=== PATIENT | female | born 1935 | race Two or more races ===

== ENCOUNTER 2019-11-10 11:15 | Inpatient (IN) | payer BC ==
[2019-11-10] MEDS ORDERED: Acetaminophen 500mg (ES) tab ORAL ONE (11:45)
[2019-11-10] MEDS ORDERED: Enoxaparin 60mg Inj SUBQ ONE (13:15)
[2019-11-10] MEDS ORDERED: Aspirin Baby 81mg ORAL ONE (13:15)
[2019-11-10] MEDS: Docusate 100mg cap ORAL SCH (18:00)
[2019-11-10] MEDS ORDERED: LISINOPRIL5 MG ORAL (19:39)
[2019-11-10] MEDS ORDERED: NORVASC5 MG ORAL (19:39)
[2019-11-10] MEDS: Atorvastatin 20mg tab ORAL SCH (20:34)
[2019-11-10] MEDS: Heparin 5000 units/ml inj SUBQ SCH (20:36)
[2019-11-11] MEDS: Aspirin EC 81mg tab ORAL SCH (08:42)
[2019-11-11] MEDS: Docusate 100mg cap ORAL SCH ×2 (08:43→13:00)
[2019-11-11] MEDS: Heparin 5000 units/ml inj SUBQ SCH ×2 (08:46→20:25)
[2019-11-11] MEDS ORDERED: Potassium Phosphate 20 MM in NS 275 ML IV ONE (15:00)
[2019-11-11] MEDS: Atorvastatin 20mg tab ORAL SCH (20:24)
[2019-11-12] MEDS: Aspirin EC 81mg tab ORAL SCH (09:37)
[2019-11-12] MEDS: Heparin 5000 units/ml inj SUBQ SCH ×2 (09:40→20:30)
[2019-11-12] MEDS ORDERED: Potassium Phosphate 20 MM in NS 275 ML IV ONE (10:00)
[2019-11-12] MEDS ORDERED: Tubing IV Secondary IV ONE (17:01)
[2019-11-12] MEDS: Atorvastatin 20mg tab ORAL SCH (20:27)
[2019-11-13] MEDS: Aspirin EC 81mg tab ORAL SCH (09:40)
[2019-11-13] MEDS: Heparin 5000 units/ml inj SUBQ SCH ×2 (09:43→21:07)
[2019-11-13] MEDS ORDERED: HydrALAZINE 25mg tab ORAL PRN (10:30)
[2019-11-13] MEDS: Atorvastatin 20mg tab ORAL SCH (21:03)
[2019-11-14] MEDS: Vancomycin 500mg/D5W 110ml IVPB SCH ×4 (01:09→12:37)
[2019-11-14] MEDS: metroNIDAZOLE 500mg tab ORAL SCH ×3 (05:50→22:05)
[2019-11-14] MEDS: Aspirin EC 81mg tab ORAL SCH (08:59)
[2019-11-14] MEDS: Heparin 5000 units/ml inj SUBQ SCH ×2 (09:04→22:13)
[2019-11-14] MEDS: Atorvastatin 20mg tab ORAL SCH (22:05)
[2019-11-15] MEDS: metroNIDAZOLE 500mg tab ORAL SCH ×2 (05:28→13:42)
[2019-11-15] MEDS ORDERED: Albuterol 90mcg Inhaler 8gm INH PRN (08:30)
[2019-11-15] MEDS: Aspirin EC 81mg tab ORAL SCH (09:43)
[2019-11-15] MEDS: Heparin 5000 units/ml inj SUBQ SCH ×2 (09:46→20:45)
[2019-11-15] MEDS ORDERED: Vancomycin 1gm in D5W 275ml IVPB SCH (12:00)
[2019-11-15] MEDS ORDERED: guaiFENesin /DM 10ml syrup ORAL PRN (17:15)
[2019-11-15] MEDS: Atorvastatin 20mg tab ORAL SCH (20:39)
[2019-11-16] MEDS: Piperacillin/Tazobactam 3.375 GM in D5W 110 ML IVPB SCH ×2 (09:27→17:24)
[2019-11-16] MEDS: Aspirin EC 81mg tab ORAL SCH (09:31)
[2019-11-16] MEDS: Heparin 5000 units/ml inj SUBQ SCH ×2 (09:32→20:40)
[2019-11-16] MEDS: guaiFENesin /DM 10ml syrup ORAL PRN (10:06)
[2019-11-16] MEDS: Atorvastatin 20mg tab ORAL SCH (20:37)
[2019-11-17] MEDS: Piperacillin/Tazobactam 3.375 GM in D5W 110 ML IVPB SCH ×3 (00:35→17:19)
[2019-11-17] MEDS: Heparin 5000 units/ml inj SUBQ SCH ×2 (09:20→20:40)
[2019-11-17] MEDS: Aspirin EC 81mg tab ORAL SCH (09:21)
[2019-11-17] MEDS: guaiFENesin /DM 10ml syrup ORAL PRN (10:15)
[2019-11-17] MEDS: HydrALAZINE 25mg tab ORAL SCH ×2 (14:35→22:52)
[2019-11-17] MEDS: Atorvastatin 20mg tab ORAL SCH (20:35)
[2019-11-18] MEDS: Piperacillin/Tazobactam 3.375 GM in D5W 110 ML IVPB SCH ×3 (00:29→17:47)
[2019-11-18] MEDS: HydrALAZINE 25mg tab ORAL SCH ×3 (05:59→22:03)
[2019-11-18] MEDS: Aspirin EC 81mg tab ORAL SCH (09:01)
[2019-11-18] MEDS: guaiFENesin /DM 10ml syrup ORAL PRN (09:01)
[2019-11-18] MEDS: Heparin 5000 units/ml inj SUBQ SCH ×2 (09:03→22:53)
[2019-11-18] MEDS: Atorvastatin 20mg tab ORAL SCH (21:56)
[2019-11-19] MEDS: Piperacillin/Tazobactam 3.375 GM in D5W 110 ML IVPB SCH ×3 (01:42→17:10)
[2019-11-19] MEDS: HydrALAZINE 25mg tab ORAL SCH (06:47)
[2019-11-19] MEDS: Aspirin EC 81mg tab ORAL SCH (08:45)
[2019-11-19] MEDS: Fluconazole 100mg tab ORAL SCH (08:45)
[2019-11-19] MEDS: Heparin 5000 units/ml inj SUBQ SCH ×2 (08:46→21:57)
[2019-11-19] MEDS: HydrALAZINE 50mg tab ORAL SCH ×2 (14:00→21:58)
[2019-11-19] MEDS: Atorvastatin 20mg tab ORAL SCH (21:58)
[2019-11-20] MEDS: Piperacillin/Tazobactam 3.375 GM in D5W 110 ML IVPB SCH ×3 (01:07→17:17)
[2019-11-20] MEDS: HydrALAZINE 50mg tab ORAL SCH ×3 (06:26→21:34)
[2019-11-20] MEDS: Fluconazole 100mg tab ORAL SCH (08:35)
[2019-11-20] MEDS: Aspirin EC 81mg tab ORAL SCH (08:35)
[2019-11-20] MEDS: Heparin 5000 units/ml inj SUBQ SCH ×2 (08:37→21:34)
[2019-11-20] MEDS: Albuterol/Ipratropium 3ml neb HHN PRN ×2 (13:07→20:22)
[2019-11-20] MEDS: Atorvastatin 20mg tab ORAL SCH (21:34)
[2019-11-21] MEDS: Piperacillin/Tazobactam 3.375 GM in D5W 110 ML IVPB SCH ×3 (00:48→17:22)
[2019-11-21] MEDS: HydrALAZINE 50mg tab ORAL SCH ×3 (06:01→22:21)
[2019-11-21] MEDS ORDERED: Albuterol/Ipratropium 3ml neb HHN PRN (07:45)
[2019-11-21] MEDS: Fluconazole 100mg tab ORAL SCH (08:13)
[2019-11-21] MEDS: Aspirin EC 81mg tab ORAL SCH (08:13)
[2019-11-21] MEDS: Heparin 5000 units/ml inj SUBQ SCH ×2 (08:15→22:22)
[2019-11-21] MEDS: Atorvastatin 20mg tab ORAL SCH (22:20)
[2019-11-22] MEDS: HydrALAZINE 50mg tab ORAL SCH ×2 (06:32→13:08)
[2019-11-22] MEDS: Aspirin EC 81mg tab ORAL SCH (09:15)
[2019-11-22] MEDS: Fluconazole 100mg tab ORAL SCH (09:16)
[2019-11-22] MEDS: Heparin 5000 units/ml inj SUBQ SCH (09:28)
[2019-11-22] MEDS: guaiFENesin /DM 10ml syrup ORAL PRN (13:08)
[2019-11-22] MEDS ORDERED: LIPITOR20 MG ORAL (13:19)
[2019-11-22] MEDS ORDERED: DUONEB 0.5-3(2.53 ML HHN (13:19)
[2019-11-22] MEDS ORDERED: LEVOTHYROXINE75 MCG ORAL (13:19)
[2019-11-22] MEDS ORDERED: NORVASC5 MG ORAL (13:19)
[2019-11-22] MEDS ORDERED: LOPRESSOR25 M1 ORAL (13:19)
[2019-11-22] MEDS ORDERED: ASPIRIN EC81 MG ORAL (13:19)
[2019-11-22] MEDS ORDERED: DIFLUCAN100 MG ORAL (13:19)
[2019-11-22] MEDS ORDERED: GUAIFENESIN DM118 M1 ORAL (13:19)
[2019-11-22] MEDS ORDERED: APRESOLINE50 MG ORAL (13:19)
[2019-11-22] MEDS ORDERED: ACETAMINOPHEN325 M1 ORAL (13:19)
[2019-11-22] MEDS ORDERED: HEPARIN SO5000 UNIT2 SUBQ (13:19)
[2019-11-22] MEDS ORDERED: IMODIUM2 MG ORAL (13:19)
[2019-11-22] MEDS ORDERED: PANTOPRAZOLE SO40 MG ORAL (13:19)
[2019-11-22] MEDS ORDERED: NS 275ml ONE (16:24)
[2019-11-22] MEDS ORDERED: Tubing Blood Filter IV ONE (16:24)
== END 2019-11-22 16:25 | DRG 391 ==
DX: K52.9 Noninfective gastroenteritis and colitis, unspecified (principal); I21.4 Non-ST elevation (NSTEMI) myocardial infarction; A41.9 Sepsis, unspecified organism; J69.0 Pneumonitis due to inhalation of food and vomit; N17.9 Acute kidney failure, unspecified; G91.2 (Idiopathic) normal pressure hydrocephalus; N39.0 Urinary tract infection, site not specified; Z88.8 Allergy status to other drugs, medicaments and biological substances; I10 Essential (primary) hypertension; Z86.73 Personal history of transient ischemic attack (TIA), and cerebral infarction without residual deficits; E86.0 Dehydration; K21.9 Gastro-esophageal reflux disease without esophagitis; G47.33 Obstructive sleep apnea (adult) (pediatric); M06.9 Rheumatoid arthritis, unspecified; Z98.2 Presence of cerebrospinal fluid drainage device; E87.6 Hypokalemia; B96.1 Klebsiella pneumoniae [K. pneumoniae] as the cause of diseases classified elsewhere; M48.061 Spinal stenosis, lumbar region without neurogenic claudication; I65.29 Occlusion and stenosis of unspecified carotid artery; H90.5 Unspecified sensorineural hearing loss; E06.3 Autoimmune thyroiditis; Z20.828 Contact with and (suspected) exposure to other viral communicable diseases; K76.0 Fatty (change of) liver, not elsewhere classified